=== PATIENT | female | born 2000 | race Caucasian/White ===

== ENCOUNTER → 2023-10-25 13:53 | Outpatient (REF) | payer OTHER, SELFPAY | LOC: RAD 13:53 | PROVIDERS: ATTENDING PHYSICIAN Advanced Practice Midwife; FAMILY PHYSICIAN Family Medicine | DX: R10.2 Pelvic and perineal pain (principal) | CPT/HCPCS: 76830; 76856 ==

== ENCOUNTER 2023-10-28 11:32 | Emergency (ER) | payer OTHER, SELFPAY ==
[2023-10-28 11:39] VITALS: BP 117/78
[2023-10-28 12:13] LABS: % Basophils 0.2 % (0-2); % Eosinophils 1.3 % (0-6); % Immature Granulocytes 0.2 % (0-0.5); % Lymphocytes 41.7 % (20.5-51.1); % Monocytes 9.3 % (1.7-9.3); % Neutrophils 47.3 % (42.2-75.2); Absolute Eosinophils 0.1 10^3/uL (0-0.7); Absolute Lymphocytes 2.3 10^3/uL (1.2-3.4); Absolute Monocytes 0.5 10^3/uL (0.1-0.6); Absolute Neutrophils 2.6 10^3/uL (1.4-6.5); Hematocrit 39.6 % (37.0-47.0); Hemoglobin 13.7 g/dL (12.0-16.0); Mean Corp Hgb Conc. 34.6 g/dL (33.0-37.0); Mean Corpuscular Hgb 32.2 pg (27.0-31.0); Mean Platelet Volume 10.8 fL (7.4-10.4); Nucleated Red Blood Cells % 0 %; Platelet Count 185 10^3/uL (130-400); Red Blood Cell Count 4.26 10^6/uL (4.20-5.40); Red Cell Dist. Width 11.9 % (11.5-14.5); White Blood Cell Count 5.4 10^3/uL (4.8-10.8)
[2023-10-28 12:23] LABS: HCG, Serum Qualitative Screen Negative
[2023-10-28 12:28] LABS: ALT (SGPT) 13 U/L (0-35); AST (SGOT) 22 U/L (14-36); Albumin 4.5 g/dl (3.5-5.0); Alkaline Phosphatase 49 U/L (38-126); Blood Urea Nitrogen 9 mg/dl (7-17); Calcium 9.6 mg/dl (8.4-10.2); Carbon Dioxide 23 mmol/L (22-30); Chloride 107 mmol/L (98-107); Glucose 84 mg/dl (70-99); Lipase 74 U/L (23-300); Potassium 4.4 mmol/L (3.5-5.1); Sodium 135 mmol/L (135-145); Total Bilirubin 2.1 mg/dl (0.2-1.3); Total Protein 6.8 g/dl (6.3-8.2); eGFR > 60.00
--- NOTE | 2023-10-28 12:54 | ED.GENMED ---
History of Present Illness
General
Chief Complaint: Abdominal Pain
Time Seen by Provider: 10/28/23 12:15
Travel History
Have you had any contact with someone who has COVID-19?: No
Do you have any symptoms of coronavirus? Fever > 100 degrees, chills, cough, shortness of breath, sore throat, loss of taste or smell, muscle aches, or headache?: No
History of Present Illness
History of Present Illness:
23-year-old female with no significant past medical history presents to the emergency department for evaluation of waxing and waning left lower quadrant abdominal pain for the past 2 weeks. Pain does occasionally become diffuse to the entire
abdomen. Saw her [facility] last week and had an outpatient pelvic ultrasound that was reportedly unremarkable. Saw her primary care physician today and was referred to the emergency department for further imaging. Denies any fevers night sweats, chest
pain, shortness of breath, dysuria, hematuria, or lower GI symptoms. She states symptoms seem to be worse after ingesting dairy but denies any diarrhea or constipation. No prior abdominal surgeries
Past History
Past History
ED Past Medical History: None
ED Past Surgical History: None
Social History
Tobacco: Non-smoker
Alcohol: None
Drug: None
Review of Systems
Review of Systems
Allergies reviewed?: Yes
All Other Systems: ROS reviewed and negative except as documented in HPI and ROS
Phy Exam
Physical Exam
Physical Exam:
GEN: Well appearing, NAD, WDWN
HEENT: Oral mucosa moist, no scleral icterus
Cardiac: Regular rate and rhythm, no murmurs
Lung: No respiratory distress, no tachypnea
Abdomen: Soft, diffusely tender to all 4 quadrants, maximally tender at the left lower quadrant, no masses
MSK: No gross deformity or injuries
Skin: Good color, no pallor or jaundice, no rashes
Neuro: AO x3, moves all extremities freely
Psych: Calm, cooperative
Course
Orders/Labs/Results
Orders:
Orders
10/28/23 11:44
IV Insert/Care/Rem.- Treatment PRN
Test Result ONCE
10/28/23 11:50
Complete Blood Count/With Diff Urgent
Comprehensive Metabolic Panel Urgent
HCG, Serum Qualitative Screen Urgent
Lipase Urgent
10/28/23 12:52
CT Abd/Pel (IV only)-DH only Urgent
Comment:
Reason For Exam: LLQ pain
10/28/23 13:07
Urinalysis Reflex To Culture Urgent
Date Specimen was Collected: 10/28/23
Time Specimen was Collected: 13:00
Urine Microscopic Reflex Cult Urgent
10/28/23 14:34
Ketorolac [Toradol] 15 mg IV NOW STA
Abnormal Lab Results
10/28/23 10/28/23
11:50 13:07
MCH 32.2 H pg
(27.0-31.0)
MPV 10.8 H fL
(7.4-10.4)
Creatinine 0.5 L mg/dL
(0.6-1.0)
Total Bilirubin 2.1 H mg/dl
(0.2-1.3)
Leukocyte Esterase Rfl Trace A
(Negative)
Urine Bacteria (Reflex) Few A
(Negative)
10/28/23 11:50
10/28/23 11:50
Vital Signs
Initial and Last Documented VS:
Initial Vital Signs
Temp Pulse Resp BP Pulse Ox
97.4 F 99 18 117/78 98
10/28/23 11:39 10/28/23 11:39 10/28/23 11:39 10/28/23 11:39 10/28/23 11:39
Last Documented Vital Signs
Temp Pulse Resp BP Pulse Ox
97.4 F 69 16 109/65 99
10/28/23 11:39 10/28/23 14:41 10/28/23 14:41 10/28/23 14:41 10/28/23 14:41
MDM/Problems Addressed
MDM/Problems Addressed:
CT interestingly reveals a ruptured left ovarian cyst, this was not seen earlier this week on pelvic ultrasound. The patient is clinically stable there is no indication for gynecologic consult as her hemoglobin is normal and vital signs are
reassuring. Patient will follow-up next week with [facility], recommended NSAIDs for pain control
*Critical Care Note
Total Time (30-74mins, 75-104mins- exclusive of procedures): Not Applicable
ED Attending Note
-
Portions of this chart may have been created with voice recognition software.� Occasional wrong word or��sound alike� substitutions may have occurred due to the inherent limitations of voice recognition software.
Discharge Plan
Departure
Patient Disposition: Home (Routine Discharge)
Date of Disposition: 10/28/23
Time of Disposition: 14:35
Patient with high blood pressure during this ER visit?: No
Discharge Problem:
Ruptured cyst of left ovary
Instructions: Ovarian Cyst (DC)
Prescriptions:
No Action
dextroamphetamine-amphetamine [Adderall XR] 20 MG capsule,extended release 24hr
20 - 30 mg PO PRN PRN (Reason: school days)
Patient Comments:
tuesday-tuesday
ondansetron 4 MG tablet,disintegrating
4 mg PO TIDPRN PRN (Reason: nausea) Qty: 12 0RF
Referrals:
Rogelio Almodovar DO [Family Provider] -
Activity Restrictions/Additional Instructions:
Follow up with your OBGYN office early next week
Interventions
Interventions:
*Risk Screen - Suicide Last Done: 10/28/23 11:39
*General Assessment Last Done: 10/28/23 11:39
*Neglect/Abuse Screening Last Done: 10/28/23 11:39
ED- Fall Risk Assessment Last Done: 10/28/23 13:25
*ED COVID-19 Vaccine History Last Done: 10/28/23 13:26
*Nursing Disposition Last Done: 10/28/23 14:46
RW-Izjwpy-Ngniprlujo Assessment Last Done: 10/28/23 13:25
Discharge Date and Time
Discharge Date/Time: 10/28/23 14:53
Print Language: SLOVENIAN
[2023-10-28 13:09] VITALS: BP 108/73
[2023-10-28 13:20] LABS: Urine Albumin Negative (Neg - Trace); Urine Bilirubin Negative (Negative); Urine Character Clear (Clear); Urine Color Yellow; Urine Glucose Negative (Negative); Urine Ketone Negative (Negative); Urine Leukocyte Trace (Negative); Urine Nitrite Negative (Negative); Urine Occult Blood Negative (Negative); Urine Urobilinogen Negative (Neg - 1+)
[2023-10-28 14:22] LABS: Urine Bacteria Few (Negative)
[2023-10-28 14:23] LABS: Urine Red Blood Cell 0-2 /HPF (0-2); Urine White Cell 0-2 /HPF (0-5)
[2023-10-28 14:41] VITALS: BP 109/65
[2023-10-28] MEDS: TORADOL 15 MG IV (14:41)
== END 2023-10-28 14:53 | disposition home or self-care (01) ==
LOC: EMR 11:32
PROVIDERS: Emergency Medicine; Physician Assistant; EMERGENCY PHYSICIAN Emergency Medicine; FAMILY PHYSICIAN Family Medicine
DX: N83.292 Other ovarian cyst, left side (principal)
CPT/HCPCS: 99285; 96374; 74177; 80053; 81003; 81015; 83690; 84703; 85025; Q9967

== ENCOUNTER → 2025-03-13 08:48 | Outpatient (REF) | payer OTHER, SELFPAY | LOC: WDC 08:48 | PROVIDERS: ATTENDING PHYSICIAN Nurse Practitioner Family | DX: N64.4 Mastodynia (principal) | CPT/HCPCS: 76642 ==